=== PATIENT | male | born 1985 | race African-American/Black ===

== ENCOUNTER 2022-01-03 21:05 | Emergency (ER) | payer OTHER | END 2022-01-03 22:01 | disposition home or self-care (01) | LOC: JD.ED 21:05 | DX: S13.4XXA Sprain of ligaments of cervical spine, initial encounter (principal); V49.10XA Passenger injured in collision with unspecified motor vehicles in nontraffic accident, initial encounter; Y92.410 Unspecified street and highway as the place of occurrence of the external cause | CPT/HCPCS: 99283 ==

== ENCOUNTER 2024-02-08 14:35 | Emergency (ER) | payer OTHER ==
[2024-02-08 15:21] LABS: APPEARANCE,URINE CLEAR (Clear); BILIRUBIN,URINE NEGATIVE (Negative); COLOR,URINE YELLOW (Yellow); GLUCOSE,URINE NEGATIVE (Negative); KETONES,URINE NEGATIVE (Negative); LEUKOCYTE ESTERASE,URINE NEGATIVE (Negative); NITRITE,URINE NEGATIVE (Negative); OCCULT BLOOD,URINE NEGATIVE (Negative); PROTEIN,URINE NEGATIVE (Negative); UROBILINOGEN,URINE 0.2 (0.2-1.0)
== END 2024-02-08 16:28 | disposition home or self-care (01) ==
LOC: JD.ED 14:35
DX: S13.4XXA Sprain of ligaments of cervical spine, initial encounter (principal); S40.012A Contusion of left shoulder, initial encounter; Z91.014 Allergy to mammalian meats; V48.5XXA Car driver injured in noncollision transport accident in traffic accident, initial encounter; Y93.89 Activity, other specified
CPT/HCPCS: 70450; 70450-26; 71045; 71045-26; 72125; 72125-26; 73000-26-LT; 73000-LT; 81003; 99284